=== PATIENT | male | born 1975 | race Caucasian/White ===

== ENCOUNTER 2019-07-09 11:15 | Emergency (ER) | payer MEDICAID ==
[~2019-07-09] VITALS: Ht 193 cm; Wt 125.9 kg
[2019-07-09 11:32] VITALS: BP 140/98
[2019-07-09] MEDS ORDERED: SULF1TAB49 PO (12:30)
[2019-07-09] MEDS ORDERED: azithromycin 250mg tablet PO ONE (12:30)
[2019-07-09] MEDS ORDERED: penicillin G benzathine 1.2 million unit/2ml syringe IM ONE (12:30)
== END 2019-07-09 12:56 | disposition home or self-care (01) ==
LOC: ER 11:15
DX: N49.2 Inflammatory disorders of scrotum (principal); R60.0 Localized edema; F10.99 Alcohol use, unspecified with unspecified alcohol-induced disorder; F15.90 Other stimulant use, unspecified, uncomplicated; Z79.899 Other long term (current) drug therapy; Y90.9 Presence of alcohol in blood, level not specified
CPT/HCPCS: 96372; 99283; J0561

== ENCOUNTER 2019-10-14 23:44 | Emergency (ER) | payer MEDICAID ==
[~2019-10-14] VITALS: Ht 193 cm; Wt 122.7 kg
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
--- NOTE | 2019-10-15 00:22 | NUR ---
[facility] [employer] [facility].
--- NOTE | 2019-10-15 00:37 | NUR ---
pt back to room [address] [facility] with [employer] escort.
[2019-10-15 01:28] VITALS: BP 128/85
--- NOTE | 2019-10-15 01:28 | NUR ---
His eyes are now edematous but he can open them.
== END 2019-10-15 01:31 ==
LOC: ER 23:45
DX: S02.2XXA Fracture of nasal bones, initial encounter for closed fracture (principal); S01.112A Laceration without foreign body of left eyelid and periocular area, initial encounter; M25.572 Pain in left ankle and joints of left foot; F15.10 Other stimulant abuse, uncomplicated; F10.99 Alcohol use, unspecified with unspecified alcohol-induced disorder; Y90.9 Presence of alcohol in blood, level not specified; Y08.89XA Assault by other specified means, initial encounter; Y93.89 Activity, other specified; Y92.89 Other specified places as the place of occurrence of the external cause; Y99.8 Other external cause status
CPT/HCPCS: 12011; 70450; 70486; 99284